=== PATIENT | male | born 1940 | race African-American/Black ===

== ENCOUNTER 2017-05-20 23:04 | Emergency (ER) | payer MEDICARE ==
[~2017-05-20] VITALS: Ht 170.2 cm; Wt 99.8 kg
[~2017-05-20 23:04] MED LIST: ADULT LOW DOSE81 MG; ALDACTONE25 MG PO; ALLOPURINOL 30300 M2 PO; EAR WAX DROPS15 ML OT; ELIQUIS5 MG PO; FUROSEMIDE 20 M20 M1; HUMALOG100 UNIT/1 SUBQ; HYDROCODONE-AP1 EAC6 PO; INDOMETHACIN 5050 MG; KEFLEX500 MG PO; LASIX 40 MG TAB40 M1 GT; LEVEMIR SUBQ; LIPITOR10 MG PO; LOTREL 5-20 MG1 EACH PO; NAPROSYN250 MG PO; NORCO 5-325 TA1 EACH PO; NOVOLOG100 UNIT/1; OSELB75 PO; PREDNISONE 10 M10 MG PO; PROVENTIL HFA6.7 G1 INH; TRAMADOL 50 MG50 MG PO; ULTRAM 50MG TAB50 MG PO; XARELTO15 MG PO; ZPAK PO
[2017-05-20] MEDS ORDERED: AMPICILLIN IV (23:24)
[2017-05-20] MEDS ORDERED: [UNRECOGNIZED DRUG - OTHER] IV (23:24)
[2017-05-20] MEDS ORDERED: TEARS AGAIN15 ML OPHTHALMIC (23:25)
[2017-05-20] MEDS ORDERED: VITAMIN D1000 UNI1 PO (23:26)
[2017-05-20] MEDS ORDERED: CYCLOPHOSPHAMID50 MG PO (23:28)
[2017-05-20] MEDS ORDERED: DEXAMETHASONE 44 M1 PO (23:37)
[2017-05-21] MEDS ORDERED: COLACE100 MG PO (00:30)
[2017-05-21] MEDS ORDERED: FLONASE 0.05%50 MCG NASAL (00:31)
[2017-05-21] MEDS ORDERED: LEVOFLOXACIN750 MG PO (00:32)
[2017-05-21] MEDS ORDERED: MELATONIN5 M1 PO (00:33)
[2017-05-21] MEDS ORDERED: METFORMIN HCL500 MG PO (00:33)
[2017-05-21] MEDS ORDERED: PENTOXIFYLLINE400 MG PO (00:34)
[2017-05-21] MEDS ORDERED: PERIDEX 0.12%473 M1 PO (00:35)
[2017-05-21] MEDS ORDERED: TRAMADOL 50 MG50 MG PO (00:35)
[2017-05-21] MEDS ORDERED: TRAZODONE HCL50 MG PO (00:36)
[2017-05-21 01:39] VITALS: BP 128/73
== END 2017-05-21 01:51 ==
LOC: ER 23:04
DX: S80.01XA Contusion of right knee, initial encounter (principal); E78.00 Pure hypercholesterolemia, unspecified; I12.9 Hypertensive chronic kidney disease with stage 1 through stage 4 chronic kidney disease, or unspecified chronic kidney disease; E11.22 Type 2 diabetes mellitus with diabetic chronic kidney disease; N18.3 Chronic kidney disease, stage 3 (moderate); E66.9 Obesity, unspecified; Z96.642 Presence of left artificial hip joint; Z86.718 Personal history of other venous thrombosis and embolism; Z68.34 Body mass index [BMI] 34.0-34.9, adult; Z85.830 Personal history of malignant neoplasm of bone; Z87.891 Personal history of nicotine dependence; Z79.4 Long term (current) use of insulin; W06.XXXA Fall from bed, initial encounter; Y93.89 Activity, other specified; Y92.092 Bedroom in other non-institutional residence as the place of occurrence of the external cause; Y99.8 Other external cause status

== ENCOUNTER 2018-07-09 08:54 | Emergency (ER) | payer MEDICARE ==
[~2018-07-09] VITALS: Ht 167.6 cm; Wt 101.6 kg
[~2018-07-09 08:54] MED LIST changes: +AMPICILLIN IV; +COLACE100 MG PO; +CYCLOPHOSPHAMID50 MG PO; +DEXAMETHASONE 44 M1 PO; +FLONASE 0.05%50 MCG NASAL; +LEVOFLOXACIN750 MG PO; +MELATONIN5 M1 PO; +METFORMIN HCL500 MG PO; +PENTOXIFYLLINE400 MG PO; +PERIDEX 0.12%473 M1 PO; +TEARS AGAIN15 ML OPHTHALMIC; +TRAZODONE HCL50 MG PO; +VITAMIN D1000 UNI1 PO; +[UNRECOGNIZED DRUG - OTHER] IV
[2018-07-09] MEDS ORDERED: AMLODIPINE BESY10 MG PO (08:58)
[2018-07-09] MEDS ORDERED: FLOMAX0.4 MG PO (08:58)
[2018-07-09] MEDS ORDERED: VITAMIN D32000 UNIT PO (08:58)
[2018-07-09] MEDS ORDERED: LIPITOR 20 MG T20 M1 PO (08:59)
[2018-07-09] MEDS ORDERED: ALLOPURINOL 10100 M1 PO (08:59)
[2018-07-09] MEDS ORDERED: REMERON15 MG PO (08:59)
[2018-07-09] MEDS ORDERED: ELIQUIS5 M1 PO (09:00)
[2018-07-09 09:43] LABS: ABSOLUTE NEUTROPHILS 3.3 thou/uL (1.4-8.2); BASOPHILS 0.4 % (0.0-2.0); EOSINOPHILS 0.2 % (0.0-3.0); HEMATOCRIT 39.1 % (42.0-52.0); LYMPHOCYTES 11.7 % (24.0-44.0); MCH 30.5 pg (26.0-34.0); MCHC 33.4 g/dL (28.0-37.0); MCV 91.5 fL (80.0-100.0); MONOCYTES 8.5 % (1.0-8.0); PLATELET COUNT 115 thou/uL (150-400); POLYS 79.2 % (36.0-66.0); RBC 4.27 mil/uL (4.50-6.00); WBC 4.1 thou/uL (4.0-11.0)
[2018-07-09 09:47] LABS: ANION GAP 9 mmol/L (7-16); BUN 16 mg/dL (7-18); CALCIUM 9.3 mg/dL (8.5-10.1); CHLORIDE 101 mmol/L (98-107); CO2 24 mmol/L (21-32); CREATININE 2.2 mg/dL (0.7-1.3); GLUCOSE 178 mg/dL (74-106); POTASSIUM 3.6 mmol/L (3.5-5.1); SODIUM 134 mmol/L (136-145)
[2018-07-09 09:47] LABS: URINE BILIRUBIN NEGATIVE (Negative); URINE BLOOD 1+ (Negative); URINE CLARITY CLEAR; URINE COLOR YELLOW; URINE GLUCOSE-RANDOM* NEGATIVE (Negative); URINE KETONES 1+ (Negative); URINE LEUKOCYTES-REFLEX NEGATIVE (Negative); URINE NITRITE-REFLEX NEGATIVE (Negative); URINE PROTEIN (DIPSTICK) 1+ (Negative); URINE SPECIFIC GRAVITY 1.025 (1.005-1.035)
[2018-07-09 09:56] LABS: AMP/METHAMP Negative (Negative); BARBITURATES Negative (Negative); BENZODIAZEPINES Negative (Negative); COCAINE Negative (Negative); METHADONE Negative (Negative); OPIATES Negative (Negative); PCP Negative (Negative)
[2018-07-09 10:06] LABS: BACTERIA-REFLEX 1-9 Few /HPF (None Seen); HYALINE CASTS 0-3 Few /LPF (None Seen); SQUAMOUS 0-3 Few /LPF (0-3); URINE RBC None Seen /HPF (0-2); URINE WBC-REFLEX 0-5 Rare /HPF (0-5)
[2018-07-09 10:07] LABS: CRYSTALS None Seen /LPF (None Seen)
[2018-07-09 10:08] LABS: SGOT 25 U/L (15-37); SGPT 22 U/L (30-65)
[2018-07-09 10:10] LABS: TROPONIN-I <0.06 ng/mL (<0.06)
[2018-07-09] MEDS ORDERED: ACYCLOVIR 400400 MG PO (10:16)
[2018-07-09] MEDS ORDERED: LEVEMIR SUBQ (10:25)
[2018-07-09] MEDS ORDERED: NOVOLOG100 UNIT/1 SUBQ (10:26)
[2018-07-09 10:36] LABS: TOTAL BILIRUBIN 0.6 mg/dL (<0.1-1.0); TOTAL PROTEIN 9.6 g/dL (6.4-8.2)
[2018-07-09 11:21] VITALS: BP 131/79
--- NOTE | 2018-07-10 10:41 | EKG ---
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1940 Requested By: Emilia Levy Order Number: [id number] MD: Chava Chavez Measurements Intervals [place] Rate: 101 P: 6 DC: 168 QRS: -40 QRSD: 100 T: 46 QT: 354 QTc: 459 Interpretive Statements Sinus tachycardia left atrial enlargement Left axis deviation Compared to ECG 03/27/2016 07:14:39 Left-axis deviation now present Electronically Signed On 07-10-2018 10:41:18 MARGIN TRIMMER by Chava Chavez [email or web address] ��������������������������������������������� <ELECTRONICALLY SIGNED> ���������������������������������������� By: Chava Chavez MD ��������������������������������������������� 07/10/18 1041 7 Chava Chavez MD /EPI
== END 2018-07-09 11:21 | disposition home or self-care (01) ==
LOC: ER 08:54
PROVIDERS: Student in an Organized Health Care Education/Training Program
DX: E86.0 Dehydration (principal); E78.00 Pure hypercholesterolemia, unspecified; M10.9 Gout, unspecified; Z96.642 Presence of left artificial hip joint; E66.9 Obesity, unspecified; Z68.36 Body mass index [BMI] 36.0-36.9, adult; Z85.830 Personal history of malignant neoplasm of bone; I12.9 Hypertensive chronic kidney disease with stage 1 through stage 4 chronic kidney disease, or unspecified chronic kidney disease; E11.22 Type 2 diabetes mellitus with diabetic chronic kidney disease; N18.3 Chronic kidney disease, stage 3 (moderate); Z87.891 Personal history of nicotine dependence

== ENCOUNTER 2018-07-22 13:59 | Emergency (ER) | payer MEDICARE ==
[~2018-07-22] VITALS: Ht 170.2 cm; Wt 95.3 kg
[~2018-07-22 13:59] MED LIST changes: +ACYCLOVIR 400400 MG PO; +ALLOPURINOL 10100 M1 PO; +AMLODIPINE BESY10 MG PO; +ELIQUIS5 M1 PO; +FLOMAX0.4 MG PO; +LIPITOR 20 MG T20 M1 PO; +NOVOLOG100 UNIT/1 SUBQ; +REMERON15 MG PO; +VITAMIN D32000 UNIT PO
[2018-07-22 15:32] LABS: ABSOLUTE NEUTROPHILS 2.6 thou/uL (1.4-8.2); BASOPHILS 0.3 % (0.0-2.0); EOSINOPHILS 0.4 % (0.0-3.0); HEMATOCRIT 35.1 % (42.0-52.0); HEMOGLOBIN 11.5 gm/dL (14.0-18.0); LYMPHOCYTES 14.8 % (24.0-44.0); MCH 30.1 pg (26.0-34.0); MCHC 32.9 g/dL (28.0-37.0); MCV 91.6 fL (80.0-100.0); MONOCYTES 7.9 % (1.0-8.0); PLATELET COUNT 115 thou/uL (150-400); POLYS 76.6 % (36.0-66.0); RBC 3.83 mil/uL (4.50-6.00); RDW 15.8 % (10.5-14.5); WBC 3.4 thou/uL (4.0-11.0)
[2018-07-22 15:37] LABS: ANION GAP 8 mmol/L (7-16); BUN 20 mg/dL (7-18); CALCIUM 9.2 mg/dL (8.5-10.1); CHLORIDE 104 mmol/L (98-107); CO2 25 mmol/L (21-32); CREATININE 1.9 mg/dL (0.7-1.3); GLUCOSE 113 mg/dL (74-106); POTASSIUM 3.8 mmol/L (3.5-5.1); SODIUM 137 mmol/L (136-145)
[2018-07-22 15:41] LABS: URINE BILIRUBIN NEGATIVE (Negative); URINE BLOOD 1+ (Negative); URINE CLARITY CLEAR; URINE COLOR YELLOW; URINE GLUCOSE-RANDOM* NEGATIVE (Negative); URINE KETONES NEGATIVE (Negative); URINE LEUKOCYTES-REFLEX NEGATIVE (Negative); URINE NITRITE-REFLEX NEGATIVE (Negative); URINE PROTEIN (DIPSTICK) 1+ (Negative); URINE SPECIFIC GRAVITY 1.025 (1.005-1.035)
[2018-07-22 15:43] LABS: ALBUMIN 2.5 g/dL (3.4-5.0); LIPASE 221 U/L (73-393); SGOT 27 U/L (15-37); SGPT 23 U/L (30-65); TOTAL BILIRUBIN 0.4 mg/dL (<0.1-1.0); TOTAL PROTEIN 9.6 g/dL (6.4-8.2); TROPONIN-I <0.06 ng/mL (<0.06)
[2018-07-22 15:52] LABS: BACTERIA-REFLEX None Seen /HPF (None Seen); COARSE GRANULAR CASTS 0-3 Few /LPF (None Seen); CRYSTALS None Seen /LPF (None Seen); FINE GRANULAR CASTS 0-3 Few /LPF (None Seen); MUCUS >6 Heavy strn/LPF (None Seen); SQUAMOUS 0-3 Few /LPF (0-3); URINE RBC None Seen /HPF (0-2); URINE WBC-REFLEX 0-5 Rare /HPF (0-5)
[2018-07-22 18:08] VITALS: BP 114/58
== END 2018-07-22 18:02 | disposition home or self-care (01) ==
LOC: ER 13:59
PROVIDERS: Nurse Practitioner Family
DX: I12.9 Hypertensive chronic kidney disease with stage 1 through stage 4 chronic kidney disease, or unspecified chronic kidney disease (principal); N18.3 Chronic kidney disease, stage 3 (moderate); E11.22 Type 2 diabetes mellitus with diabetic chronic kidney disease; E78.00 Pure hypercholesterolemia, unspecified; M10.9 Gout, unspecified; E66.9 Obesity, unspecified; Z96.642 Presence of left artificial hip joint; Z87.891 Personal history of nicotine dependence; Z86.718 Personal history of other venous thrombosis and embolism; Z68.32 Body mass index [BMI] 32.0-32.9, adult; Z85.830 Personal history of malignant neoplasm of bone; Z79.4 Long term (current) use of insulin

== ENCOUNTER 2018-08-03 16:52 | Inpatient (IN) | payer MEDICARE ==
[~2018-08-03] VITALS: Ht 170.2 cm; Wt 80.3 kg
[2018-08-03 16:53] VITALS: BP 113/56
[2018-08-03 18:43] LABS: HEMATOCRIT 30.7 % (42.0-52.0); HEMOGLOBIN 10.2 gm/dL (14.0-18.0); MCH 30.3 pg (26.0-34.0); MCHC 33.2 g/dL (28.0-37.0); MCV 91.3 fL (80.0-100.0); PLATELET COUNT 130 thou/uL (150-400); RBC 3.37 mil/uL (4.50-6.00); RDW 16.1 % (10.5-14.5); WBC 2.9 thou/uL (4.0-11.0)
[2018-08-03 19:21] LABS: ABSOLUTE NEUTROPHILS 2.4 thou/uL (1.4-8.2)
[2018-08-03 19:22] LABS: ANISOCYTOSIS 2+; POLYCHROMASIA OCCASIONAL
[2018-08-03 19:45] LABS: CALCIUM 9.4 mg/dL (8.5-10.1); CREATININE 5.8 mg/dL (0.7-1.3); POTASSIUM 4.2 mmol/L (3.5-5.1)
[2018-08-03 21:14] LABS: URINE BILIRUBIN NEGATIVE (Negative); URINE BLOOD 2+ (Negative); URINE CLARITY SL CLOUDY; URINE COLOR YELLOW; URINE CREATININE-RANDOM* 138.8 mg/dL; URINE GLUCOSE-RANDOM* NEGATIVE (Negative); URINE KETONES NEGATIVE (Negative); URINE LEUKOCYTES-REFLEX NEGATIVE (Negative); URINE NITRITE-REFLEX NEGATIVE (Negative); URINE PROTEIN (DIPSTICK) TRACE (Negative); URINE UROBILINOGEN 0.2 E.U./dl (0.2-1.0)
[2018-08-03 21:27] LABS: AMORPHOUS URATES Moderate /LPF (None Seen)
[2018-08-03 21:28] LABS: BACTERIA-REFLEX 1-9 Few /HPF (None Seen); CASTS None Seen /LPF (None Seen); CRYSTALS None Seen /LPF (None Seen); SQUAMOUS 0-3 Few /LPF (0-3); URINE RBC 0-2 Rare /HPF (0-2); URINE WBC-REFLEX None Seen /HPF (0-5)
[2018-08-03 23:05] VITALS: BP 107/57
[2018-08-04] VITALS: BP 116/61
--- NOTE | 2018-08-04 | NUR ---
Pt. arrived to the unit frnm the emergency room accompanied by staff via stretcher. Pt. is non-verbal and will not answer admission questions. No family is present to assist with this admission. Assessment completed. Pt. offers no c/o pain. Bed alarm is on.
[2018-08-04 03:39] VITALS: BP 114/73
[2018-08-04 06:22] LABS: CREATININE 5.2 mg/dL (0.7-1.3); POTASSIUM 4.2 mmol/L (3.5-5.1)
[2018-08-04 06:29] LABS: DIRECT BILIRUBIN 0.2 mg/dL (<0.1-0.3); TOTAL BILIRUBIN 0.4 mg/dL (<0.1-1.0); TOTAL PROTEIN 8.8 g/dL (6.4-8.2)
[2018-08-04 10:06] VITALS: BP 92/70
[2018-08-04 10:49] VITALS: BP 128/61
[2018-08-04] MEDS ORDERED: FLONASE 0.05%50 MCG (11:03)
[2018-08-04] MEDS ORDERED: REVLIMID10 MG PO ×2 (11:07→11:53)
[2018-08-04] MEDS ORDERED: FLOMAX0.4 MG PO (11:09)
[2018-08-04] MEDS ORDERED: REMERON15 MG PO (11:09)
[2018-08-04] MEDS ORDERED: AMLODIPINE-BEN1 EAC3 PO (12:01)
--- NOTE | 2018-08-04 15:00 | NUR ---
PT ADMITTED RELATED TO ACUTE RENAL FAILURE. CM REVIEWED CHART AND SPOKE WITH CARE TEAM. CM MET WITH PT AND DTR AT BEDSIDE THIS DAY. THEY INDICATED THAT PT RESIDES IN A HOUSE ALONE WITH 7 STEPS TO ENTER THROUGH THE GARAGE AND THEN 7 TO BEDROOM WELL. FAMILY INDICATED THAT HE HAD BEEN INDEPENDENT WITH GAIT RENT COLLECTOR. DTR INDICATED SHE HAD STARTED HELPING PT WITH MEAL PREP, DRESSING, AND SHOWERING. DTR SHARON CALLE DTR . DTR INDICATED THAT PT'S SON ELODIA TOLLIVER WOULD BE STAYING WITH HIM UPOND DISCR. CM RECIEVED PC FROM MARCELLE [facility] AND INDICATED THAT THEY WERE REFERRED TO ASSESS FOR POSSIBLE ADMISSION FOR [facility] UPON DC. CM TO NOTIFY THEM BEFOR PT DISCHARGES AT FAX .
[2018-08-04 15:41] VITALS: BP 110/63
[2018-08-04 19:27] VITALS: BP 116/66
[2018-08-05 03:39] VITALS: BP 103/54
--- NOTE | 2018-08-05 03:52 | NUR ---
Pt. rested quietly during the shift without any complaints. He is confused times three. Bed alarm is on.
[2018-08-05 07:07] LABS: CALCIUM 8.8 mg/dL (8.5-10.1); CREATININE 4.3 mg/dL (0.7-1.3); PHOSPHORUS 3.9 mg/dL (2.5-4.9); POTASSIUM 3.9 mmol/L (3.5-5.1)
[2018-08-05 07:46] VITALS: BP 112/60
--- NOTE | 2018-08-05 13:10 | NUR ---
TOWARDS POC PT A/O X2, CALM, COOPERATIVE. VSS, AFEBRILE, NO NV NOTED, DENIES PAIN. STUDENT NURSE HELPING OUT WITH THE CARE. PT IS AWAITING FOR CHEMO TREATMENT THIS PM, FAMILY IS AWARE. WILL CONTINUE TO MONITOR.
[2018-08-05 13:30] VITALS: BP 130/62
[2018-08-05 14:25] VITALS: BP 118/57
--- NOTE | 2018-08-05 17:30 | NUR ---
NOTIFICATION RECEIVED FROM DR. NOVOA' NURSE, SIOMRAA, AND THE PHARMACIST THAT PT IS TO RECEIVE CHEMOTHERAPY TODAY AND TOMORROW, CYTOXAN, FOR HIS MULTIPLE MYELOMA. CONFIRMED PLAN WITH PT'S NURSE, MEL, WHO CONFIRMED WITH PT'S FAMILY THAT THEY ARE ANTICIPATING CHEMO TO BE GIVEN TODAY. CLARIFIED DOSE OF CYTOXAN TO BE 600MG/M2 AND RECEIVED OK TO PROCEED FROM DR. AL NURSE EARLIER TODAY (WANTED GO-AHEAD BASED ON PROGRESS NOTES THAT WERE NOT CLEAR TO ME IF PT WAS OK'D TO PROCEED). WHEN THIS NURSE VISITED PT TO DO TEACHING AND ASK IF HE WERE AWARE THAT HE WAS TO BEGIN CHEMO TODAY HE SAID NO, HE WAS UNAWARE THAT HE WAS TO BEGIN CHEMO. ASKED PT IF HE HAD SPOKEN WITH DR. NOVOA AND HE SAID YES AND "IT SUCKS". DECLINED CHEMO AGAIN. LET PT KNOW THAT THE DOCTOR HAS ORDERS FOR CHEMO AND PT AGAIN INDICATED THAT HE DOES NOT WANT CHEMO. THIS NURSE WAS UNCLEAR IF PT IS FULLY ORIENTED. UPON CHECKING WITH PT'S NURSE, I WAS TOLD THAT HE IS CONFUSED. UPON LOOKING TO HIS DPOA FOR CONSENT TO ADMINISTER THE CHEMO, THIS PERSON IS LISTED ON HIS FACE SHEET DELMY, THE SON. HOWEVER, SHARON, THE DAUGHTER IS GIVING THE APPROVAL FOR THE CHEMO. THERE IS NO DPOA PAPERWORK ON FILE AND SHARON, THE DAUGHTER, IS STATING THAT DR. NOVOA KNOWS SHE IS THE ONE TO MAKE DECISIONS. NO CONSENTS FOR TREATMENT ARE SIGNED ON PT'S CHART. WITH NO CONSENTS ON FILE, NO DPOA ON FILE, AND THE PT'S REFUSAL TO ACCEPT CHEMO, PROCEEDING WITH TREATMENT SEEMS ILL ADVISED UNTIL THIS DECISION CAN BE LEGALLY SUPPORTED. NOTIFIED THE PT'S NURSE, THE NURSING OIL RIG ROUGHNECK, NELIDA, AND THE DIVE MASTER, CHIKIS, AND DR. NOVOA THAT THIS NURSE FEELS THAT THE CHEMO SHOULD BE HELD UNTIL WE HAVE PAPERWORK ON FILE DESIGNATING WHO THE LAWFUL DECISION MAKER IS IN THIS SITUATION. CHIKIS KRAUSE, DIVE MASTER, STATES PT'S COTTON BALL BAGGER, AMELIE, WILL GET THAT PAPERWORK FROM THE FAMILY IN THE MORNING. LET PT'S NURSE, MEL, KNOW THAT CHEMO IS ON HOLD FOR TONBRISEYDA. RETURNED CHEMO TO THE PHARMACY AND LET THE PHARMACIST KNOW WELL.
[2018-08-05 19:49] VITALS: BP 125/63
--- NOTE | 2018-08-06 02:21 | NUR ---
PT SLEPT MOST OF THE NIGHT PT USED CALL LIGHT EFFECTIVELY NO ISSUES OVERNIGHT.
[2018-08-06 04:08] VITALS: BP 133/66
[2018-08-06 06:09] LABS: ALBUMIN 1.9 g/dL (3.4-5.0); CALCIUM 9.1 mg/dL (8.5-10.1); PHOSPHORUS 3.7 mg/dL (2.5-4.9); POTASSIUM 3.6 mmol/L (3.5-5.1)
[2018-08-06 06:27] LABS: CREATININE 3.3 mg/dL (0.7-1.3)
[2018-08-06 08:03] VITALS: BP 132/79
--- NOTE | 2018-08-06 13:38 | NUR ---
TOWARDS POC PT A/O X1, PT SEEMS WITHDRAWN THE WHOLE DAY. PT REFUSES TO TAKE PO MEDS. 24 HR URINE SENT TO THE LAB. SISTER AND DTR AT BEDSIDE THIS PM. PT DPOA PAPERS STILL NOT IN THE CHART, UNABLE TO DO CHEMO DUE TO DPOA PAPERS. WILL CONTINUE TO MONITOR.
[2018-08-06 13:59] VITALS: BP 134/72
--- NOTE | 2018-08-06 16:25 | NUR ---
THIS RN CONSULTED TO GIVE CHEMOTHERAPY FOR MULTIPLE MYELOMA. RECEIVED GOOD BLOOD RETURN FROM RAC 18 G IV AND FLUSHED EASILY. ANC 2400 ON 08/03/18. PLATELET COUNT GREATER THAN 100. BUN AND CREAT SLIGHTLY ELEVATED FROM PATIENT'S BASELINE. CHEMO CHECKED WITH DESMOND HENSLEY. PATIENT AGREEABLE TO CHEMO TREATMENT. DTR SIGNED CONSENT FOR TREATMENT. PREMEDS GIVEN 30 MIN. PRIOR TO START OF CHEMO. INFUSED CYTOXAN OVER 40 MINUTES AND TOLERATED WELL. DTR AND SISTER AT BEDSIDE AND REVIEWED CHEMO PRECAUTIONS AND SIDE EFFECTS AND GAVE HANDOUTS ON CHEMO AND SIDE EFFECTS. ALSO GAVE A HANDOUT ON CANCER. CHEMO PRECAUTIONS STARTED. INSTRUCTED ZAC LEAL ON CHEMO PRECAUTIONS.
--- NOTE | 2018-08-06 16:36 | NUR ---
IT WAS BROUGHT TO THE ATTENTION OF CM YESTERDAY AFTERNOON THAT ONC DR. NOVOA ORDERED THAT CHEMO BE STATED AND THAT IV INFUSION HAD COME TO ADMINISTER DRUG AND PT WAS NOT AGREEABLE WITH THE ADMINISTRATION YESTERDAY. IV INFUSION WAS NOT CONFORTABLE GIVING CHEMO. CM CALLED PT'S SON DELMY THIS AM AND IT WAS DETERMINED THAT PT DOESN'T HAVE A DPOA. PHYSICIAN REACHED OUT TO PT AND FAMILY AND IT WAS DETERMINED THAT THEY WOULD HOLD OFF ON THE CHEMO UNTIL TOMORROW THEY WERE ALL STILL DETERMININING PLAN OF CARE. CM NOTIFIED IV INFUSION AND PHARMACY AND TREATMENT WAS PUT ON HOLD. LATER AFTERNOON PHYSICIAN FOLLOWED UP WITH PT AND FAM AND THEY INDICATED THAT THEY DECIEDED TO PROCED WITH CHEMO. CM MET WITH PT, DTR SHARON, AND EX AT BEDSIDE AND ALL INCLUDING PT WERE IN AGREEMENT WITH STARTING CHEMO. PHARMACY AND IV INFUSION WERE ALL CONTACT AND THE DRUG WAS ADMINISTERED. CM TO FOLLOW INDICATED WITH DC PLANNING.
[2018-08-06 20:43] VITALS: BP 123/69
[2018-08-07 03:50] VITALS: BP 139/78
--- NOTE | 2018-08-07 04:20 | NUR ---
PATIENT WAS ALERT AND EASY TO AROUSE THOUGHOUT THE SHIFT. ORIENTED TO SELF BUT FOLLOWS DIRECTIONS. PATIENT SLEEPT PART OF THE SHIFT. REVERSE ISOLATION CONTINUED DUE TO CHEMO. CATHETER IS PATIENT WITH HECTOR OUTPUT. HIGH FALL RISK PROTOCOL IN PLACE. PATIENT NOT PROGRESSING TOWARDS DISCHARGE GOALS. CONTINUE POC.
[2018-08-07 04:57] LABS: ABSOLUTE NEUTROPHILS 2.8 thou/uL (1.4-8.2); BASOPHILS 0.2 % (0.0-2.0); EOSINOPHILS 0.1 % (0.0-3.0); LYMPHOCYTES 11.5 % (24.0-44.0); MCH 30.1 pg (26.0-34.0); MCHC 33.3 g/dL (28.0-37.0); MCV 90.4 fL (80.0-100.0); MONOCYTES 2.4 % (1.0-8.0); PLATELET COUNT 111 thou/uL (150-400); POLYS 85.8 % (36.0-66.0); RBC 3.31 mil/uL (4.50-6.00); RDW 16.3 % (10.5-14.5); WBC 3.3 thou/uL (4.0-11.0)
[2018-08-07 05:15] LABS: ALBUMIN 1.8 g/dL (3.4-5.0); CALCIUM 8.5 mg/dL (8.5-10.1); CREATININE 2.7 mg/dL (0.7-1.3); MAGNESIUM 1.2 mg/dL (1.8-2.4); PHOSPHORUS 4.6 mg/dL (2.5-4.9); POTASSIUM 4.4 mmol/L (3.5-5.1); TOTAL BILIRUBIN 0.5 mg/dL (<0.1-1.0); TOTAL PROTEIN 8.6 g/dL (6.4-8.2); URIC ACID* 7.5 mg/dL (2.6-7.2)
[2018-08-07 08:03] VITALS: BP 146/72
[2018-08-07 16:31] VITALS: BP 119/73
--- NOTE | 2018-08-07 17:02 | NUR ---
THERAPY INDICATIING THAT PT WOULD BENEFIT FROM POST ACUTE CARE STAY. CM WILL HAVE TO FOLLOW UP WITH PT AND FAMILY TO SEE IF THEY ARE AGREEABLE AND WHERE THEY WOULD LIKE REFERRALS SENT. WE WOULD THEN NEED INSURNACE AUTH.PT WILL LIKELY BE HERE OVER THE WEEKEND.
[2018-08-07 20:13] VITALS: BP 129/68
--- NOTE | 2018-08-07 20:16 | NUR ---
PATIENT MUCH MORE ALERT TODAY. SAT UP IN CHAIR MOST OF THE DAY. WALKED IN HALLS WITH PHYSICAL THERAPY AND TOLERATED FAIR. ORIENTED TO PERSON AND PLACE. DAY #2 OF CHEMO GIVEN AND TOLERATED WELL. RECEIVED GOOD BLOOD RETURN FROM RAC IV AND FLUSHED EASILY. GOOD URINE OUTPUT NOTED. ATE SMALL AMOUNTS TODAY. ABLE TO FEED SELF. FAMILY VISITED. FALL PRECAUTIONS IN PLACE.
[2018-08-07 20:30] VITALS: BP 167/75
--- NOTE | 2018-08-08 03:45 | NUR ---
CARE ASSUMED AT 1900 PATIENT WAS IN BED AWAKE AND IRRITABLE.PATIENT WAS AOX1 CONFUSED AND FORGETFUL. PATIENT REMOVED IV X2. PATIENT WAS TRYING TO PULL OUT THE WHITNEY. CALLED UNSTACKER NEW ORDER OF SITTER. PATIENT WAS NON COMPLIANT WITH CARE. CALLED SECURITY X2 SINCE PATIENT WAS COMBATIVE AND HARD TO REDIREDCT, CALLED UNSTACKER NEW ORDER OF IM HALDOL. PATIENT HAD REFUSED MEDS AND AFTER IM HALDOL PATIENT TOOK HS MEDS CRUCHED IN APPLESAUSE PER PATIENT REQUEST. FLUID PUSHED AT THIS TIME. XANAX GIVEN PER ORDER SINCE PATIENT CONTINUED TO BE COMBATIVE WITH STAFF, WHEN STAFF TRIED TO DIRECT HIM. PATIENT WAS TRYING TO GET OUT OF BED SERAL TIMES. PATIENT IS A HIGH FALL RISK. PATIENT ON CHEMO PRECAUTION. COSMETICS AND TOILETRIES SALESPERSON CALLED FOR 1:1 PATIENT HAS BEEN SLEEPING ON AND OFF THIS SHIFT. PATIENT AWAKE AND CALM AT THIS ITME.
[2018-08-08 04:28] VITALS: BP 158/80
[2018-08-08 05:14] LABS: HEMATOCRIT 31.3 % (42.0-52.0); HEMOGLOBIN 10.5 gm/dL (14.0-18.0); MCH 30.2 pg (26.0-34.0); MCHC 33.4 g/dL (28.0-37.0); MCV 90.4 fL (80.0-100.0); RBC 3.47 mil/uL (4.50-6.00); RDW 15.9 % (10.5-14.5); WBC 6.5 thou/uL (4.0-11.0)
[2018-08-08 05:28] LABS: ALBUMIN 2.2 g/dL (3.4-5.0); CALCIUM 8.3 mg/dL (8.5-10.1); CREATININE 2.4 mg/dL (0.7-1.3); PHOSPHORUS 3.6 mg/dL (2.5-4.9); POTASSIUM 3.9 mmol/L (3.5-5.1)
[2018-08-08 07:35] VITALS: BP 130/66
[2018-08-08 15:23] VITALS: BP 130/63
--- NOTE | 2018-08-08 17:47 | NUR ---
PT STABLE THROUGHOUT SHIFT. PT HAD A COUPLE OF EPISODES OF AGITATION, TREATED WITH MEDICATION AND SITTER WAS AVAILABLE TO HELP REDIRECT, CALM PT. PT RESTING, FAMILY AT BEDSIDE.
[2018-08-08 21:30] VITALS: BP 169/75
[2018-08-09 06:05] VITALS: BP 135/64
[2018-08-09 07:25] VITALS: BP 139/72
[2018-08-09 07:26] LABS: HEMATOCRIT 31.2 % (42.0-52.0); HEMOGLOBIN 10.4 gm/dL (14.0-18.0); MCH 30.3 pg (26.0-34.0); MCHC 33.3 g/dL (28.0-37.0); MCV 90.9 fL (80.0-100.0); RBC 3.44 mil/uL (4.50-6.00); RDW 16.1 % (10.5-14.5); WBC 9.4 thou/uL (4.0-11.0)
--- NOTE | 2018-08-09 07:32 | NUR ---
PATIENT WAS CONFUSED AND AGITATED PART OF THE NIGHT. SITTER AND ATIVAN HELPED KEEP PATIENT CALM. PROTECTIVE ISOLATION DUE TO CHEMO TO BE CONTINUED. PATIENT SLEPT PART OF THE NIGHT. CATHETER STILL IN PLACE DUE TO RETENTION. PATIENT IS PROGRESSING TOWARDS DC GOALS.
[2018-08-09 07:33] LABS: CALCIUM 8.7 mg/dL (8.5-10.1); CREATININE 2.2 mg/dL (0.7-1.3); POTASSIUM 3.7 mmol/L (3.5-5.1)
--- NOTE | 2018-08-09 14:40 | NUR ---
TOWARDS POC PT A/O X1, VSS, AFEBRILE. DENIES PAIN. PT ONE ON ONE SITTER. PT STILL TRIES TO GET OUT OF THE BED AND GET AGITATED AT TIMES, PRN MEDS GIVEN. CHEMO PRECAUTION IN PLACE UNTIL 16OO HRS. WILL CONTINUE TO MONITOR.
[2018-08-09 16:15] VITALS: BP 120/60
[2018-08-09 19:33] VITALS: BP 129/61
[2018-08-10 04:53] VITALS: BP 127/55
--- NOTE | 2018-08-10 06:44 | NUR ---
PATIENT WAS LESS AGITATED THIS SHIFT AND SLEPT PART OF THE NIGHT. ALERT AND ORIENTED TO SELF. SITTER WAS WITH PATIENT UNTIL ABOUT 0300HRS AND NEED FOR SITTER WAS REASSESSED. IT WAS DETERMINED THAT PATIENT NO LONGER NEEDED A SITTER AT THIS TIME. CONTINUE ASSESSING THE NEED FOR A SITTER. PATIENT IS PROGRESSING TOWARDS DISCHARGE GOALS.
[2018-08-10 08:19] VITALS: BP 122/58
[2018-08-10 08:36] LABS: HEMATOCRIT 28.7 % (42.0-52.0); HEMOGLOBIN 9.5 gm/dL (14.0-18.0); MCH 30.4 pg (26.0-34.0); MCHC 33.2 g/dL (28.0-37.0); MCV 91.4 fL (80.0-100.0); RBC 3.14 mil/uL (4.50-6.00); RDW 16.7 % (10.5-14.5); WBC 7.2 thou/uL (4.0-11.0)
[2018-08-10 08:53] LABS: ALBUMIN 1.8 g/dL (3.4-5.0); CALCIUM 8.4 mg/dL (8.5-10.1); CREATININE 2.1 mg/dL (0.7-1.3); PHOSPHORUS 4.3 mg/dL (2.5-4.9); POTASSIUM 4.1 mmol/L (3.5-5.1)
--- NOTE | 2018-08-10 16:52 | NUR ---
CM SPOKE WITH PT'S DTR AND SISTER THIS AFTERMOON AND INDICATED CARE TEAM ARE RECOMMENDING PIST ACUTE CARE STAY. THEY ASKED ABOUT 5N, THEY TOURED AND A CONSULT WAS ENTERED FOR PT TO BE ASSED FOR POSSIBLE ADMISSIOM. CM ALSO PROVIDED SNF LIST FOR REVIEW. CM TO FOLLOW INDICATED WITH DC PLANNING.
[2018-08-10 17:25] VITALS: BP 107/63
[2018-08-10 19:39] VITALS: BP 149/80
--- NOTE | 2018-08-10 19:52 | NUR ---
Pt stable during the shift, was calm and cooperative though still confused. POC followed, fluid intake was encouraged. FC removed and IV fluids discontinued as per orders of DR. Manriquez. Pt was able to sit on the chair for the most part of the afternoon. FAmily came to visit, CM discussed DC plans and movement to rehab. Awaiting on documentation for the DPOA since there is confusion with in the family, advised to speak to the CM.
[2018-08-11 04:02] LABS: ALBUMIN 1.8 g/dL (3.4-5.0); CALCIUM 8.1 mg/dL (8.5-10.1); CREATININE 1.9 mg/dL (0.7-1.3); PHOSPHORUS 3.5 mg/dL (2.5-4.9); POTASSIUM 3.8 mmol/L (3.5-5.1)
[2018-08-11 04:07] VITALS: BP 116/56
[2018-08-11 04:44] LABS: HEMATOCRIT 27.6 % (42.0-52.0); HEMOGLOBIN 9.3 gm/dL (14.0-18.0); MCH 30.6 pg (26.0-34.0); MCHC 33.6 g/dL (28.0-37.0); MCV 91.1 fL (80.0-100.0); RBC 3.03 mil/uL (4.50-6.00); RDW 16.3 % (10.5-14.5); WBC 5.2 thou/uL (4.0-11.0)
[2018-08-11 07:31] VITALS: BP 115/66
--- NOTE | 2018-08-11 07:43 | NUR ---
PATIENT WAS ALERT AN DORIENTED X2. PT SLEPT PART OF THE NIGHT. PATIENT DOES NOT REQUIRE A SITTER AT THIS LOC. PATEIENT IS INCT BUT VOIDS ADEQUATELY. PATIENT TURNS HIMSELF AND IS ABLE TO FOLLOW SIMPLE COMMANDS. PATIENT IS PROGRESSING TOWARDS DISCHARGE GOALS.
--- NOTE | 2018-08-11 09:40 | NUR ---
[facility] INDICATED THAT PT DOESN'T HAVE A QUALIFYING DX FOR ADMISSION THERE. CM MET WITH PT AND SISTER AT BEDSIDE THIS DAY AND THEY ASKED THAT REFERRAL BE SENT TO [facility], [facility], AND [facility]. REFERRALS TO BE SENT. SISTER INDICATED THAT THEY ARE INTERESTED IN DOING DPOA PAPERWORK. CM ASKED PT WHO HE WANTED TO MAKE MEDICAL DECISIONS IN THE EVENT HE WAS UNABLE TO DO SO AND HE INDICATED HIS SISTER. CM TO ASSIST IN DOING DPOA PAPERWORK. CM TO ASSIST WITH DC PLANNING.
--- NOTE | 2018-08-11 10:14 | NUR ---
Steak Tenderizer Machine sent referral to Bishop Johansen, Tevin Person and Ranjit Shahid. Discharge will be joselin. Case management to follow up.
--- NOTE | 2018-08-11 15:08 | NUR ---
I have reviewed the documentation by TOBY FORD from 08/11/18 To 08/11/18 and I concur with it. ABBY ESCOBAR
--- NOTE | 2018-08-11 15:20 | NUR ---
[facility]T ABLE TO ACCEPT PT. [facility] REVIEWING REFERRAL. THEY HAD ASKED IF/WHEN PT WOULD BE NEEDING THE CHEMO. CM ASKED NURSE TO REACH OUT TO DR. NOVOA TO CLARIFY THIS. CM AWAITING RESPONSE. CM COMPLETED DPOA PAPERWORK WITH PT AND SISTER. CM TO FOLLOW INDICATED WITH DC PLANNING.
[2018-08-11 15:35] VITALS: BP 110/56
--- NOTE | 2018-08-11 19:39 | NUR ---
Pt stable through out the shift. Still confused but cooperative. encouraged fluid intake through out the day. Was able to void on his own. POC followed, no other issue identified or complaints verbalized. Pt was able to work with PT and OT and ambluated the halls with a walker. Awaiting orders from Dr. Ryan with regards to orders for chemo, as per advise of CM this is needed in the system prior to placement to request for auth. Called his office and informed. endorsed to the night nurse number of Dr. Ryan for follow up of the day nurse [phone]. Family at bedside during the day and still in discussion for the process and who will be the dpoa, advised to spean to the CM for the process.
[2018-08-11 19:45] VITALS: BP 109/60
--- NOTE | 2018-08-12 02:19 | NUR ---
ASSUMED CARE AROUND 1900. AXOX2. PO FLUID ENCOURAGED. VSS. NO S/S ACUTE DISTRESS NOTED OR REPORTED AT THIS TIME. WILL CONT TO MONITOR ANY CHANGES IN CONDITION.
[2018-08-12 03:51] VITALS: BP 125/66
[2018-08-12 07:18] VITALS: BP 113/55
[2018-08-12 11:08] LABS: KAPPA FREE LIGHT CHAINS 1431.5 mg/L (3.3-19.4); KAPPA/LAMBDA RATIO 622.39 (0.26-1.65); LAMBDA FREE LIGHT CHAINS 2.3 mg/L (5.7-26.3)
--- NOTE | 2018-08-12 11:16 | HC ---
[facility] [place] [address] CONSULTATION Name: DALYALEJANDRA Room #: 453-P ADM IN M.R.#: [id number] Admission: 08/03/18 ������������������ Attend Phys: Shawn Ventura Discharge: ������������������ Date of : 42 Report #: [id number] THIS REPORT FOR: //name// CC: Shawn Ryan Fili Remy DATE OF SERVICE: 08/04/2018 REASON FOR CONSULTATION: Acute kidney injury. REASON FOR PRESENTATION: Abnormal labs. HISTORY OF PRESENT ILLNESS: A well-known patient to me. He is an advanced myeloma patient. He was called by his limited radiology technician for an abnormal labs. I do not have those labs available, but I am assuming that this is related to his blood count and high creatinine. He sees me in the kidney clinic. He has chronic kidney disease stage 3 with a baseline creatinine of around 1.8. He had an extensive hospital stay at [facility] requiring excision of a jaw mass that was consistent with myeloma. Unfortunately, the patient is not able to provide me with any details of history at this time given his mental status. I am being consulted to manage his acute kidney injury when he presented to the Emergency Room as he had a creatinine of 5.8. PAST MEDICAL HISTORY: Extensive and includes the followin. Multiple myeloma, advanced. 2. Diabetes mellitus. 3. Chronic kidney disease, stage 3. 4. Hypertension. 5. Obstructive sleep apnea. 6. Narcolepsy. 7. Obesity. 8. Pulmonary embolism. 9. DVT. 10. Remote history of thrombocytopenia. 11. Extensive hospital stay at [facility] for a jaw mass, requiring an excision and numerous surgeries. 12. Myeloma. MEDICATIONS: 1. Flomax. 2. Tramadol. 3. Acyclovir. 4. Dexamethasone. 5. Amlodipine. 6. Allopurinol. [facility] [address] [place] [address] CONSULTATION Name: ALEJANDRA KAUFFMAN Room #: 453-P [facility] IN ..#: [id number] Admission: 08/03/18 ������������������ Attend Phys: Shawn Ventura Discharge: ������������������ Date of : 42 Report #: [id number] SOCIAL HISTORY: Lives with his daughter. No drug or alcohol abuse. REVIEW OF SYSTEMS: Unobtainable given the patient's mental status. ALLERGIES: None. PHYSICAL EXAMINATION: GENERAL: He is very lethargic. VITAL SIGNS: Blood pressure is 114/73, pulse rate is 86, temperature is 36.2. HEAD AND NECK: No jugular venous distention. CHEST: Decreased air entry bilaterally. CARDIOVASCULAR: No rub. ABDOMEN: Soft, nontender. LOWER EXTREMITIES: No edema. LABORATORY VALUES: Reviewed. White blood cell count 2.9, platelets 130. BUN is 39, and creatinine is 5.2. ASSESSMENT, IMPRESSION AND PLAN: 1. Acute kidney injury. 2. Chronic kidney disease with a baseline creatinine of around 2.0. 3. Myeloma. 4. Anemia. 5. Thrombocytopenia. 6. Leukopenia. 7. We will start the appropriate investigations for his acute kidney injury. This seems to be prerenal. The patient had an extensive myeloma history and required numerous hospitalizations, prolonged hospitalization at [facility] for jaw surgery with an excision of his jaw bone. Unfortunately, his condition continued to deteriorate after that. He has very poor oral intake. At this point, we will continue with the normal saline infusion. 8. Monitor electrolytes. 9. Management of myeloma per his limited radiology technician. ��������������������������������������������� <ELECTRONICALLY SIGNED> ���������������������������������������� By: Uri Manriquez MD ��������������������������������������������� 08/12/18 1116 0830 1933 Franklin Guerrero MD /nt
--- NOTE | 2018-08-12 13:17 | NUR ---
TOWARDS POC PT A/O X1. CALM, COOPERATIVE. DENIES PAIN. EXT. MALE CATH IN PLACE, DRAINING WELL. WILL CONTINUE TO MONITOR.
[2018-08-12 13:19] VITALS: BP 120/60
--- NOTE | 2018-08-12 14:46 | NUR ---
CLARIFIED PLAN FROM ONC FAXED TO [facility]. AWAITING DETERMINATION IF THEY WOULD BE ABLE TO ACCEPT PT. CM TO FOLLOW INDICATED WITH DC PLANNING.
--- NOTE | 2018-08-12 15:05 | NUR ---
UPDATED ONCOLOGY PROGRESS NOTE FAXED TO [facility] ADMISSIONS FOR CHEMO THERAPY RECOMMENDATIONS. INSURANCE AUTH PENDING CHEMO NEEDS. UNIT CM/SW AWARE. FOLLOWING TO ASSIST WITH DISCHARGE NEEDS.
[2018-08-12 19:23] VITALS: BP 97/54
--- NOTE | 2018-08-13 03:19 | NUR ---
ASSUMED CARE AROUND 1900. AXOX1 TO SELF. NO S/S ACUTE DISTRESS NOTED OR REPORTED AT THIS TIME. WILL CONT TO MONITOR FOR ANY CHANGES IN CONDITION.
[2018-08-13 03:34] VITALS: BP 104/65
[2018-08-13 06:11] LABS: ALBUMIN 2.1 g/dL (3.4-5.0); CALCIUM 8.5 mg/dL (8.5-10.1); CREATININE 1.7 mg/dL (0.7-1.3); PHOSPHORUS 2.5 mg/dL (2.5-4.9); POTASSIUM 4.1 mmol/L (3.5-5.1)
[2018-08-13 08:10] VITALS: BP 129/70
--- NOTE | 2018-08-13 12:43 | HC ---
[facility] [place] [address] CONSULTATION Name: ALEJANDRA KAUFFMAN Room #: 453-P [facility] IN M.R.#: [id number] Admission: 08/03/18 ������������������ Attend Phys: Shawn Ventura Discharge: ������������������ Date of : 42 Report #: [id number] THIS REPORT FOR: //name// CC: Shawn Ryan Fili Remy DATE OF SERVICE: 08/04/2018 HISTORY OF PRESENT ILLNESS: This patient is well known to me from earlier diagnosis of IgG lambda multiple myeloma that was initially treated in 2015. He presented with stage 3 disease with pathologic rib fracture at the time of a pulmonary embolus. He went into remission and because of his overall state of health, did not pursue high dose chemotherapy or transplant. At the end of this past year, his labs showed progressive disease and in May, he was begun on the monoclonal antibody, dorsiflex in conjunction with dexamethasone. He was seen back yesterday for his third cycle of therapy when they realized that he had not started taking the Revlimid, which was prescribed to be begun with his second cycle of treatment. During this time, it was noted that his paraproteins were worsening and his labs subsequently came back showing marked elevation of his serum creatinine from usual 2-5.8. He was contacted and told to go to the hospital for inpatient therapy. In addition to his multiple myeloma, he has had chronic kidney disease and was previously on dialysis. 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 He has had a longstanding hypertension, which has been medically managed along with hyperlipidemia, diabetes, and gout. He is obese and has undergone previous carpal tunnel. SOCIAL HISTORY: He is a reformed smoker, nondrinker. FAMILY HISTORY: Noncontributory. ALLERGIES: None known. MEDICATIONS: As listed in the MFR. REVIEW OF SYSTEMS: Positive for increasing confusion over the past few weeks to the point that he went to the Emergency Room on the and underwent head scanning, which revealed no acute process. This now is felt related to his [facility] [address] [place] [address] CONSULTATION Name: ALEJANDRA KAFUFMAN Room #: 453-P [facility] IN M.R.#: [id number] Admission: 08/03/18 ������������������ Attend Phys: Shawn Ventura Discharge: ������������������ Date of : 42 Report #: [id number] worsening myeloma on inadequate therapy. He denies any new suspicious palpable masses or pain. He has had no sweats, chills, or fevers. Denies any easy bruising or bleeding. PHYSICAL EXAMINATION: GENERAL: Shows him to be sitting in a chair. He knew and spoke my name, but is capable only of short answers. He is accompanied by his family. HEENT: Shows mouth to be dry. He has poor dentition. CHEST: Clear. CARDIOVASCULAR: Showed normal S1, S2. ABDOMEN: Soft/obese. NEUROLOGIC: Shows no focal localizing signs, but he is sleepy/confused. EXTREMITIES: Showed no edema. LYMPHATICS: No suspicious adenopathy. LABORATORY: Shows improvement in his creatinine from 5.8-5.2 and he is making straw-colored urine. ASSESSMENT: IgG lambda multiple myeloma, on inadequate therapy. PLAN: I did talk to his daughter earlier about starting Revlimid. This was prior to seeing his acute on chronic renal failure and this will be held. It would be safe to administer IV Cytoxan and have also discussed this with family members who were present today as well as Dr. Guerrero. We additionally discussed possible plasmapheresis to remove his offending monoclonal paraprotein. No chemotherapy is currently available inhouse, but has been discussed and ordered through the pharmacy. Dr. Guerrero also discussed further with the daughter who would be his next of kin/power of grain processor regarding future care. ��������������������������������������������� <ELECTRONICALLY SIGNED> ���������������������������������������� By: Yissel Ryan MD ��������������������������������������������� 08/13/18 1243 [id number] 1550 Yissel Ryan MD /nt
--- NOTE | 2018-08-13 12:47 | NUR ---
TOWARDS POC PT A/O X1, CALM, COOPERATIVE. VSS, AFEBRILE, DENIES PAIN. WILL CONTINUE TO MONITOR.
[2018-08-13 15:48] VITALS: BP 105/52
--- NOTE | 2018-08-13 16:21 | NUR ---
[facility]C'S PROG NOTE WITH RECOMMENDATIONS SENT TO [facility] YESTERDAY THEY RAN MEDS AND INDICATED THAT THEY WOULD NOT BE ABLE TO ACCEPT PT FOR POST ACUTE CARE STAY DUE TO COST OF NEEDED MEDS. CM TO NOTIFY CRE TEAM AND FAMILY TO DETERMINE DC PLAN.
[2018-08-13 19:24] VITALS: BP 125/62
[2018-08-14 03:27] VITALS: BP 140/105
--- NOTE | 2018-08-14 05:30 | NUR ---
Assumed care at 1845. Pt resting in bed. AOX1, VSS, afebrile and calm. No identified needs at the moment. Call light within reach. Will continue to monitor.
[2018-08-14 07:20] VITALS: BP 122/63
[2018-08-14 12:45] LABS: HEMOGLOBIN 9.7 gm/dL (14.0-18.0)
[2018-08-14 12:47] LABS: MCH 30.1 pg (26.0-34.0); MCHC 33.4 g/dL (28.0-37.0); MCV 90.2 fL (80.0-100.0); PLATELET COUNT 78 thou/uL (150-400); RBC 3.21 mil/uL (4.50-6.00); RDW 15.8 % (10.5-14.5)
[2018-08-14 13:01] LABS: WBC 0.9 thou/uL (4.0-11.0)
[2018-08-14 13:21] LABS: ABSOLUTE NEUTROPHILS 0.2 thou/uL (1.4-8.2); LARGE PLATELETS FEW; METAMYELOCYTES 2 %; PLATELET ESTIMATE DECREASED
--- NOTE | 2018-08-14 14:47 | NUR ---
CM FOLLOWED UP WITH PT, SISTER/DPOA JYOTHI, AND PT'S DTR. CM INDICATED THAT [facility] ISN'T ABLE TO ACCEPT PT BECAUSE OF COST OF MED. CM INDICATED THAT CM HAD SENT REFERRAL TO [facility] AND THAT LIAISON LONA WOULD BE OVER TO REVIEW MEDICAL RECOND AND VISIT WITH PT AND FAMILY. CM INDICATED THAT IF [facility] ISN'T ABLE TO ACCEPT PT OTHER OPTION WOULD BE PT RETURNING HOME WITH HOME HEALTH SERVICES. STR INDICATED THAT SHE WOULD BE ABLE TO STAY AND ASSIST PT DURING THE DAY AND THAT ONE OF HIS SON'S WOULD BE ABLE TO ASSIST OVER NIGHT. THEY ALSO REQUESTED PD INFO FOR REVIEW. CM TO FOLLOW UP WITH LIAISON AND PROVIDE PD INFO. CM TO FOLLOW INDICATED WITH DC PLANNING.
--- NOTE | 2018-08-14 16:01 | NUR ---
LONA WITH [facility] INDICATED THAT PT LOOKS TO BE A GOOD CANDIDATE FOR ADMISSION BUT SHE INDICATED THAT THEIR PHARMACY CAN'T MAKE THE MEDICATION REVLIMID. THEY INDICATED THAT PT AND FAMILY COULD SUPPLY 14 DAYS OF THE MED THEY WOULD BE ABLE TO ADMINISTER IT TO HIM. DEANNE ASKED PT AND SISTER IF PT HAD BEEN TAKING MED SOLAR PHOTOVOLTAIC CREW LEAD AND NEITHER OF THEM KNEW. DEANNE CALLED DR. NOVOA'S NURSE [place] AND SHE INDICATED THAT PT HAD BEEN ON THE REVLIMID SOLAR PHOTOVOLTAIC CREW LEAD BUT THAT PT HADN'T STARTED IT BECAUSE HE WAS CONFUSED BUT THAT FAR SHE KNOWS PT SHOULD HAVE THE MEDICATION FILLED AT HOME. CARE TEAM INDICATED THAT PT ISN'T TAKING THIS MED CURRENTLY IN THE HOSPITAL. CM NOTIFIED LIAISON OF THIS AND SHE INDICATED SHE MIGHT NEED A LETTER INDICATING THAT PT ISN'T TO TAKE MEDICATION UNTIL AFTER REHAB. SHE INDICATED THAT SHE WOULD FOLLOW UP WITH CM FRIDAY AND THEY WOULD LIKELY NOT BE ABLE TO ADMIT PT OVER THE WEEKEND. CM TO FOLLOW INDICATED WITH DC PLANNING.
--- NOTE | 2018-08-14 18:36 | NUR ---
QUIET UNEVENTFUL DAY. SAT UP IN RECLINER ALL MORNING AND TOLERATED FAIR. TOLERATING DIET. EATING BETTER. WBC 0.9. GRANIX GIVEN. PLATELETS 78. NO BLEEDING NOTED. PATIENT HAD CHEMO 1 WEEK AGO AND HIS BLOOD COUNTS ARE DROPPING DUE TO GLORY. INSTRUCTED PATIENT AND FAMILY TO WASH HANDS AND TO NOT LET FAMILY WHO IS SICK TO VISIT HE IS IMMUNOCOMPROMISED AT PRESENT. PLAN IS TO HOPEFULLY FIND A REHAB THAT WILL APPROVE HIM. CM IS WORKING ON THIS. DENIED PAIN. VERY PLEASANT AND COOPERATIVE.
[2018-08-14 19:42] VITALS: BP 101/62
--- NOTE | 2018-08-15 00:32 | NUR ---
ASSUMED PT CARE 1899. PT ALERT AND ORIENTED, CONFUSED. IV DRESSING C/D/I, NO SIGNS OF INFILTRATION. VSS. PT DENIES PAIN, N/V. PT OF PROTECTION PRECAUTION. TELE IS SR. PT CALL LIGHT AND PERSONAL ITEMS WITHIN REACH. WILL OCNTINUE POC UNTIL EOS.
[2018-08-15 04:16] VITALS: BP 116/53
[2018-08-15 05:20] LABS: MCH 30.4 pg (26.0-34.0)
[2018-08-15 05:23] LABS: HEMATOCRIT 26.7 % (42.0-52.0); MCHC 33.6 g/dL (28.0-37.0); MCV 90.4 fL (80.0-100.0); RBC 2.96 mil/uL (4.50-6.00); RDW 16.1 % (10.5-14.5)
[2018-08-15 05:39] LABS: WBC 1.9 thou/uL (4.0-11.0)
--- NOTE | 2018-08-15 05:51 | NUR ---
ASSUMED CARE AROUND 0115. AXOX1. SLEPT MOST OF THE NIGHT. WBC CRITICAL AT 1.9. IMPROVEMENT FROM YESTURDAY. PT WAS PUT ON IV NEUPOGEN YESTURDAY. PER BRIE BROWN GRIP BOSS FOR HIMS, NNO AT THIS TIME AND CONT TO MONITOR. NO S/S ACUTE DISTRESS NOTED OR REPORTED AT THIS TIME. WILL CONT TO MONITOR ANY CHANGES IN CONDITION.
[2018-08-15 05:56] LABS: ALBUMIN 2.2 g/dL (3.4-5.0); CALCIUM 8.8 mg/dL (8.5-10.1); CREATININE 1.8 mg/dL (0.7-1.3); PHOSPHORUS 2.6 mg/dL (2.5-4.9); POTASSIUM 4.1 mmol/L (3.5-5.1)
[2018-08-15 05:59] LABS: CALCIUM 8.9 mg/dL (8.5-10.1); CREATININE 1.9 mg/dL (0.7-1.3); MAGNESIUM 1.4 mg/dL (1.8-2.4)
[2018-08-15 07:53] VITALS: BP 108/60
[2018-08-15 15:57] VITALS: BP 108/57
--- NOTE | 2018-08-15 17:57 | NUR ---
Assumed pt care this morning, he is alert and oriented but can be forgetful at times. Diet is well tolerated and prefers his Ensure drink over his meal. Pt is able to transfer from bed to chair and was able to take a bath this am with help. Temperature was slightly elevated (100) , tylenol given elevation resolved (36.8). POC followed all medication taken, no verbalization of pain or discomfort by the pt. Family is at bedside.
[2018-08-15 19:15] VITALS: BP 98/58
--- NOTE | 2018-08-16 00:54 | NUR ---
patient aox2/3 makes needs known. patient calm and cooperative with care and medication.patient wbc are cl, precaution taken this shift.patient is continent this shift. scd on.patient in bed asleep at this time breathing regular and unlaboured.
[2018-08-16 03:45] VITALS: BP 117/62
[2018-08-16 05:18] LABS: HEMOGLOBIN 9.7 gm/dL (14.0-18.0); MCH 30.5 pg (26.0-34.0); MCHC 33.5 g/dL (28.0-37.0); MCV 91.2 fL (80.0-100.0); RBC 3.18 mil/uL (4.50-6.00); RDW 16.5 % (10.5-14.5)
[2018-08-16 05:31] LABS: MAGNESIUM 1.5 mg/dL (1.8-2.4); POTASSIUM 3.9 mmol/L (3.5-5.1)
[2018-08-16 07:48] VITALS: BP 97/54
[2018-08-16 13:45] VITALS: BP 97/42
--- NOTE | 2018-08-16 15:55 | NUR ---
AAAOX4 PLEASANT AND COOPERATIVE. CALLS OUT USING CALL LIGHT. BED ALARM ON. LEFT WRIST SALINE LOCK INTACT. GOOD APPETITE. RESP EVEN AND UNLABORED. ON ROOM AIR. SKIN INTACT. NO COMPLAINTS OF PAIN OR DISCOMFORT.
[2018-08-16 19:51] VITALS: BP 109/50
--- NOTE | 2018-08-17 03:30 | NUR ---
ASSUMED CARE AROUND 1900. AXOX2. NO S/S ACUTE DISTRESS NOTED OR REPORTED AT THIS TIME. WILL CONT TO MONITOR FOR ANY CHAGNES IN CONDITION.
[2018-08-17 04:54] VITALS: BP 106/48
[2018-08-17 05:57] LABS: HEMATOCRIT 27.4 % (42.0-52.0); HEMOGLOBIN 9.1 gm/dL (14.0-18.0); MCH 30.7 pg (26.0-34.0); MCHC 33.4 g/dL (28.0-37.0); PLATELET COUNT 79 thou/uL (150-400); RBC 2.98 mil/uL (4.50-6.00); RDW 16.8 % (10.5-14.5); WBC 11.7 thou/uL (4.0-11.0)
[2018-08-17 05:58] LABS: HEMATOCRIT 27.2 % (42.0-52.0); HEMOGLOBIN 9.1 gm/dL (14.0-18.0); MCH 30.3 pg (26.0-34.0); MCHC 33.3 g/dL (28.0-37.0); MCV 90.9 fL (80.0-100.0); RBC 2.99 mil/uL (4.50-6.00); WBC 11.7 thou/uL (4.0-11.0)
[2018-08-17 06:16] LABS: CALCIUM 9.7 mg/dL (8.5-10.1); MAGNESIUM 1.9 mg/dL (1.8-2.4)
[2018-08-17 06:46] LABS: ABSOLUTE NEUTROPHILS 8.8 thou/uL (1.4-8.2); METAMYELOCYTES 2 %
[2018-08-17 06:47] LABS: ANISOCYTOSIS 1+; LARGE PLATELETS FEW; PLATELET ESTIMATE DECREASED; POLYCHROMASIA 1+
[2018-08-17 07:17] VITALS: BP 127/62
[2018-08-17 12:43] VITALS: BP 105/41
--- NOTE | 2018-08-17 13:06 | NUR ---
faxed updated therapy evals to [facility] who is attemtping auth with insurance. Sister Angie Blanco as of 08/11/18 DPOA however her number not in medical chart. Angie [phone] attempted to add in assessment. Rn reports Dr Ryan said patient can dc home. Sp with patient, dtr Ganga at bedside and sister over phone. They want patient to eventually return home but sister does not believe strong enough at this time. Therapy evals recommending post acute care. They wish to proceed with determining if can rec auth for acute rehab.
--- NOTE | 2018-08-17 17:06 | NUR ---
PT STABLE THROUGHOUT SHIFT. PT HAD NO C/O PAIN OR SOA. FAMILY AT BEDSIDE. PT RESTING COMFORTABLY.
[2018-08-17 19:46] VITALS: BP 131/60
[2018-08-18 02:47] VITALS: BP 108/53
--- NOTE | 2018-08-18 04:25 | NUR ---
ASSUMED CARE AROUND 1900. AXOX2. SOMETIMES IMPULSIVE TO GET OUT OF THE BED. EASILY RE-ORIENTED. NO S/S ACUTE DISTRESS NOTED OR REPORTED AT THIS TIME. WILL CONT TO MONITOR FOR ANY CHANGES IN CONDITION.
[2018-08-18 05:36] LABS: HEMATOCRIT 25.6 % (42.0-52.0); HEMOGLOBIN 8.5 gm/dL (14.0-18.0); MCH 30.1 pg (26.0-34.0); RBC 2.82 mil/uL (4.50-6.00); RDW 16.8 % (10.5-14.5)
[2018-08-18 05:49] LABS: CALCIUM 8.9 mg/dL (8.5-10.1); CREATININE 2.1 mg/dL (0.7-1.3); MAGNESIUM 1.8 mg/dL (1.8-2.4); POTASSIUM 4.1 mmol/L (3.5-5.1)
[2018-08-18 07:51] VITALS: BP 106/65
--- NOTE | 2018-08-18 09:17 | NUR ---
Followup: Remains on carb controlled diet, BG controlled. Tolerating meals and has oral supplement ordered. No new wt to assess. Discharge planning in progress. Low nutrition risk
[2018-08-18 12:29] VITALS: BP 91/54
--- NOTE | 2018-08-18 14:25 | NUR ---
WE ARE AWAITING AUTH FOR PT TO GO TO [facility]. CM PROVIDED LIAISON WITH PHONE PHONE NUMBER FOR A DIRECT RELIABILITY TECHNICIANS WITH [facility]. CM TO FOLLOW INDICATED WITH DC PLANNING.
--- NOTE | 2018-08-18 15:40 | NUR ---
Assumed pt care this am, pt is alert and oriented x4. Pt was able to work with OT and took a bath and with _PT as well. Pt stayed on the chair for several hours and had his breakfast and lunch there. Pt had no issues or complaints through out the day. Pt did not exhibit any type of distress or confusion. Son and sister is at bedside awaiting updates from CN for placement. POC followed.
[2018-08-18 20:33] VITALS: BP 100/55
--- NOTE | 2018-08-19 06:51 | NUR ---
Pt. rested quietly at intervals during the night when checked on during frequent rounds. He offers no complaints. Incontinent of urine at times. Bed alarm is on.
[2018-08-19 09:02] VITALS: BP 111/65
[2018-08-19 09:16] VITALS: BP 111/65
[2018-08-19] MEDS ORDERED: AMLODIPINE BESYL5 M1 PO (10:48)
--- NOTE | 2018-08-19 11:59 | NUR ---
[employer] AUTHORIZED PT GOING TO [facility] THIS DAY. CM NOTIFIED PT, SISTER/DPOA, AND SON. THEY ARE ALL AGREEABLE. ORDERS TO BE FAXED. REPORT TO BE CALLED TO . [facility]SPORT SET UP FOR 1430. NO OTHER CM INTERVENTION INDICATED AT THIS TIME. CASE CLOSED.
--- NOTE | 2018-08-19 12:17 | NUR ---
Assumed pt care this am, POC followed. Pt ambulated from bed to chair and sat up for his meals. All medications taken and meals are tolerated. Accu checks done as scheduled. Pt is to be dc today, son is at the bedside. Home medication that was stored in the medroom returned (Revlimid) to the pt.
--- NOTE | 2018-08-19 12:22 | NUR ---
DISCHARGE ORDERS RECIEVED AND INSURANCE AUTH OBTAINED. PATIENT DISCHARGING TO [facility]. CHART COPIED PER C IRON WORKER. ORDERS FAXED TO ADMISSIONS, VERIFIED RECEIVED. [facility] TO TRANSPORT 1430 HOURS. UNIT RN NOTIFIED AND CONTACT NUMBER PROVIDED FOR REPORT. FAMILY/DPOA NOTIFIED PER UNIT SW.
== END 2018-08-19 14:33 | DRG 682 ==
LOC: ER 16:52 → EROBS 20:15 → 4W 20:15
PROVIDERS: Hospitalist; Internal Medicine; Internal Medicine Hematology & Oncology; Internal Medicine Nephrology; Nurse Practitioner Acute Care; Nurse Practitioner Family; Student in an Organized Health Care Education/Training Program; ADMIT Hospitalist
DX: N17.9 Acute kidney failure, unspecified (principal); D61.810 Antineoplastic chemotherapy induced pancytopenia; E43 Unspecified severe protein-calorie malnutrition; G93.41 Metabolic encephalopathy; C90.02 Multiple myeloma in relapse; I12.9 Hypertensive chronic kidney disease with stage 1 through stage 4 chronic kidney disease, or unspecified chronic kidney disease; E11.22 Type 2 diabetes mellitus with diabetic chronic kidney disease; N18.3 Chronic kidney disease, stage 3 (moderate); E78.00 Pure hypercholesterolemia, unspecified; M10.9 Gout, unspecified; G47.419 Narcolepsy without cataplexy; Z96.642 Presence of left artificial hip joint; G47.33 Obstructive sleep apnea (adult) (pediatric); T45.1X5A Adverse effect of antineoplastic and immunosuppressive drugs, initial encounter; R26.9 Unspecified abnormalities of gait and mobility; N40.0 Benign prostatic hyperplasia without lower urinary tract symptoms; R41.81 Age-related cognitive decline; E66.9 Obesity, unspecified; M62.84 Sarcopenia; Y92.89 Other specified places as the place of occurrence of the external cause; Z86.711 Personal history of pulmonary embolism; Z68.27 Body mass index [BMI] 27.0-27.9, adult; Z87.891 Personal history of nicotine dependence; Z86.718 Personal history of other venous thrombosis and embolism; Z85.830 Personal history of malignant neoplasm of bone; Z79.01 Long term (current) use of anticoagulants; Z79.4 Long term (current) use of insulin; Z79.899 Other long term (current) drug therapy
CPT/HCPCS: 10045

== ENCOUNTER 2018-09-28 12:55 | Emergency (ER) | payer MEDICARE ==
[~2018-09-28] VITALS: Ht 167.6 cm; Wt 87.1 kg
[~2018-09-28 12:55] MED LIST changes: +AMLODIPINE BESYL5 M1 PO; +AMLODIPINE-BEN1 EAC3 PO; +FLONASE 0.05%50 MCG; +REVLIMID10 MG PO
[2018-09-28 13:34] LABS: HEMATOCRIT 30.6 % (42.0-52.0); MCH 31.8 pg (26.0-34.0); MCHC 32.8 g/dL (28.0-37.0); MCV 97.1 fL (80.0-100.0); PLATELET COUNT 169 thou/uL (150-400); RBC 3.16 mil/uL (4.50-6.00); RDW 22.2 % (10.5-14.5); WBC 4.6 thou/uL (4.0-11.0)
[2018-09-28 13:39] LABS: CREATININE 1.7 mg/dL (0.7-1.3); POTASSIUM 3.7 mmol/L (3.5-5.1)
[2018-09-28 13:43] LABS: APTT 27.1 Seconds (24.5-32.8); INR 1.1; PROTIME 11.3 Seconds (9.3-11.4)
[2018-09-28 13:54] LABS: ANISOCYTOSIS 1+; POLYCHROMASIA OCCASIONAL
[2018-09-28] MEDS ORDERED: MIRALAX17 GM PO (15:06)
[2018-09-28 15:24] VITALS: BP 122/72
== END 2018-09-28 15:25 | disposition home or self-care (01) ==
LOC: ER 12:55
PROVIDERS: Emergency Medicine
DX: K62.5 Hemorrhage of anus and rectum (principal); K56.41 Fecal impaction; E78.00 Pure hypercholesterolemia, unspecified; M10.9 Gout, unspecified; I12.9 Hypertensive chronic kidney disease with stage 1 through stage 4 chronic kidney disease, or unspecified chronic kidney disease; E11.22 Type 2 diabetes mellitus with diabetic chronic kidney disease; N18.3 Chronic kidney disease, stage 3 (moderate); Z86.718 Personal history of other venous thrombosis and embolism; Z96.642 Presence of left artificial hip joint; Z86.711 Personal history of pulmonary embolism; Z87.891 Personal history of nicotine dependence; Z79.4 Long term (current) use of insulin